=== PATIENT | female | born 2000 | race Caucasian/White ===

== ENCOUNTER 2024-05-09 16:42 | Inpatient (IN) ==
[2024-05-09 17:32] LABS: Basophils # (auto) 0.02 K/uL (0.00-0.20); Basophils % (auto) 0.2 %; Eosinophils # (auto) 0.03 K/uL (0.00-0.50); Eosinophils % (auto) 0.3 %; Hematocrit (blood only) 33.3 % (37.0-47.0); Hemoglobin 10.9 g/dl (12.0-16.0); Immature Granulocytes # (auto) 0.04 K/uL (0.01-0.20); Immature Granulocytes % (auto) 0.5 %; Lymphocytes # (auto) 1.03 K/uL (1.20-3.40); Lymphocytes % (auto) 11.7 %; Mean Corpuscular Hemoglobin 28.5 pg (25.0-34.0); Mean Corpuscular Hgb Conc 32.7 g/dL (32.0-36.0); Mean Corpuscular Volume 87.2 fL (80.0-100.0); Mean Platelet Volume 10.2 fL (9.4-12.4); Monocytes # (auto) 0.46 K/uL (0.11-0.59); Monocytes % (auto) 5.2 %; Neutrophils # (auto) 7.24 K/uL (1.40-6.50); Neutrophils % (auto) 82.1 %; Platelet Count 292 K/uL (130-400); RDW Standard Deviation 40.9 fL (36.4-46.3); Red Blood Count 3.82 M/uL (4.20-5.40); White Blood Count 8.82 K/ul (4.8-10.8)
[2024-05-09 17:51] LABS: Alanine Aminotransferase 13 U/L (7-52); Albumin Globulin Ratio 1.2 (0.9-2); Albumin Level 3.5 gm/dl (3.4-5.0); Alkaline Phosphatase 152 U/L (34-104); Anion Gap 9 (3-11); Aspartate Aminotransferase 15 U/L (13-39); BUN Creatinine Ratio 16.1 (10-20); Bilirubin,Total 0.3 mg/dl (0.2-1.0); Blood Urea Nitrogen 9 mg/dl (6-23); Calcium 8.9 mg/dl (8.6-10.3); Carbon Dioxide 19 mmol/L (21-32); Chloride 107 mmol/L (98-107); Est GFR (African American) > 150.0 ml/min; Est GFR (Non-African American) 131.4 ml/min; Glucose 82 mg/dl (70-99(Fasting)); Potassium 3.6 mmol/L (3.5-5.1); Sodium 135 mmol/L (136-145); Total Protein 6.5 gm/dl (6.0-8.3)
[2024-05-09 17:56] LABS: Creatinine Urine Random 33.1 mg/dl; Protein Creatinine Ratio Urine 0.1 (0-0.2); Total Protein Urine Random 4.9 mg/dl (0-11.9)
[2024-05-09] MEDS ORDERED: OXYTOCIN 30 UNITS/NSS 30 UNITS/500 ML BAG IV PRN (20:09)
[2024-05-09] MEDS ORDERED: LIDOCAINE 1% LOCAL 20 ML VIAL INFIL PRN (20:09)
--- NOTE | 2024-05-09 20:14 | History & Physical Report ---
Date of Service May 09, 2024 Assessment & Plan (1) Gestational hypertension: (2) with 39 completed weeks gestation: Plan Patient monitored over 4 hours and continues to have mildly elevated blood pressures at times of 140s/90s. Labs are all wnl. 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 Patient fulfills criteria for ghtn and as she is 39 weeks, induction of labor recommended. cx is not favorable. Failed attempt at whalen bulb. So will start with vaginal cytotec. Place whalen and add pit when able. History of Present Illness Chief Complaint: elevated blood pressure Primary Care Provider: NO PCP Patient is a 23yowf with iup at 39 0/7 weeks who presents to labor and delivery from the office with elevated blood pressures of 140s/90s. She notes increased swelling and an 8# weight gain noted. She denies shamra, ruq pain, n/v. Notes baby very active and no labor sx. and Delivery Plans BMI 35-39 At Beginning Of *Growth US at 32wks *Weekly NSTs at 36wks Velamentous Cord Insertion *Growth US Q4wks @28wks *Weekly NSTs @36wks *at 28 & 32 week scan pci looked more marginal than velamentous--continue to follow protocol. OB Labs: Blood Type A Positive 11/08/23 Antibody Screen NEGATIVE 11/08/23 Hemoglobin 10.9 g/dl (12.0-16.0) L 02/20/24 Hematocrit 32.0 % (37.0-47.0) L 02/20/24 Mean Corpuscular Volume 87.6 fL (80.0-100.0) 11/08/23 Platelet Count 298 K/uL (130-400) 11/08/23 Rubella IgG Antibody Immune (Immune) 11/08/23 Rapid Plasma Reagin Nonreactive (Nonreactive) 11/08/23 Hepatitis B Surface Antigen. NON-REACTIVE (NON-REACTIVE) 11/08/23 Hepatitis C Antibody (EIA) NON-REACTIVE (NON-REACTIVE) 11/08/23 HIV (1&2) Ag and Ab Confirmation NON-REACTIVE (NON-REACTIVE) 11/08/23 Glucose 1 Hour 50 gm Load 146 mg/dl (70-130) H 02/20/24 OB Optional Labs: Chlamydia trachomatis RNA Not Detected (NotDetected) 11/08/23 Neisseria gonorrhoeae RNA Not Detected (NotDetected) 11/08/23 Labs Reviewed: msafp declines smp GBS neg Allergies Allergy/AdvReac Type Severity Reaction Status Date / Time No Known Allergies Allergy Verified 05/09/24 15:43 Home Medications Medication Instructions Recorded Confirmed Type ferrous sulfate 325 mg (65 mg 325 mg PO DAILY 05/09/24 05/09/24 History iron) tablet (Iron (ferrous sulfate)) vits no.124-ferrous fum 1 tab PO DAILY 05/09/24 05/09/24 History 27 mg iron-folic acid 800 mcg tablet ( Vitamin) Patient History Medical History Varicella vaccine Asthma Family History Mother Breast cancer Denies family history of Ovarian cancer Prostate cancer Myocardial infarction Colorectal cancer Social History Smoking Status: Former smoker Tobacco Type: E-cigarettes / Vaping Second Hand Exposure: No; Do You Dip or Chew Tobacco: No; Hx Alcohol Use: No Hx Substance Use: No Preferred Language: Italian Communication Ability: Effective 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 current occupational status: employed current occupation: [employer] Other Information That Helps Us Care for You: No Feels Safe at Home: Yes Safety Concerns: Feels Safe At This Time Assistive Devices: None OB History g1--present SYSTEM DEVELOPMENT ENGINEER History noncontributory Physical Exam Constitutional: WD/WN, vitals as above Cardiovascular: Extremities: + edema (+2 to knee); no calf tenderness Gastrointestinal (Abdomen): soft, gravid, nt Psychiatric: A+Ox3, euthymic affect Genitourinary: cx--c/50/-2/post/firm toco--intermittent efm--140s with mod variability, accels to 180s, no decels attempted to place whalen bulb x 3 and unable to pass through internal os. Results & Data Vital Signs (Past 12 Hours) Vital Signs Temp Pulse Resp BP 05/09/24 19:24 81 05/09/24 19:24 147/82 H 05/09/24 19:06 18 05/09/24 19:06 36.6 C 18 05/09/24 18:54 90 05/09/24 18:54 130/78 05/09/24 18:22 80 05/09/24 18:22 138/86 05/09/24 18:13 93 H 05/09/24 18:13 139/85 05/09/24 18:02 83 05/09/24 18:02 142/86 H 05/09/24 17:52 91 H 139/87 05/09/24 17:42 86 138/83 05/09/24 17:32 91 H 135/92 05/09/24 17:28 37.0 C 18 05/09/24 17:22 113 H 130/87 05/09/24 17:14 86 140/88 05/09/24 17:02 88 133/90 Coding Level of Care Code None Diagnoses Gestational hypertension, third trimester O13.3 Trimester: third trimester with 39 completed weeks gestation Z3A.39 (1) Gestational hypertension Trimester: third trimester Qualified Code(s): O13.3 - Gestational [- induced] hypertension without significant proteinuria, third trimester
[2024-05-09] MEDS: miSOPROStoL 25 MCG TAB PV ONE (22:15)
[2024-05-10] MEDS: LACTATED RINGER'S 1,000 ML IV PRN (06:24)
--- NOTE | 2024-05-10 06:25 | Labor Progress Brief Note ---
Date of Service May 10, 2024 Subjective Patient got one cytotec and contracted too frequently for another. Now allowing me to attempt whalen bulb placement again. Assessment & Plan (1) Gestational hypertension: Trimester: third trimester Qualified Code(s): O13.3 - Gestational [-induced] hypertension without significant proteinuria, third trimester (2) with 39 completed weeks gestation: Plan successful whalen bulb placement. fetus category one. start pitocin. Admission and Anticipated Discharge Date Admission Date: May 09, 2024 Physical Exam Physical Exam: cx--barely a fingertip/50/-2 toco--3-4 om 10 minutes efm--140s with mod variability, accels to 170s, no decels speculum placed, cx visualized and whalen placed through, filled wiht 30cc of st [place] water. Results & Data Vital Signs (Past 12 Hours) Vital Signs Temp Pulse Resp BP 05/10/24 05:51 73 122/77 05/10/24 04:48 86 127/81 05/10/24 04:46 20 05/10/24 04:46 20 05/10/24 04:25 18 05/10/24 04:25 37.0 C 05/10/24 03:37 96 H 143/94 H 05/10/24 02:35 86 139/85 05/10/24 00:42 81 133/85 05/09/24 23:21 77 05/09/24 23:21 132/72 05/09/24 23:16 37.1 C 05/09/24 23:15 16 05/09/24 23:15 16 05/09/24 22:50 77 05/09/24 22:50 132/79 05/09/24 22:22 71 05/09/24 22:22 132/74 05/09/24 21:57 74 05/09/24 21:57 145/80 H 05/09/24 21:50 82 05/09/24 21:50 153/92 H 05/09/24 21:20 90 05/09/24 21:20 134/87 05/09/24 20:50 79 05/09/24 20:50 133/82 05/09/24 20:20 86 05/09/24 20:20 139/93 05/09/24 19:24 81 05/09/24 19:24 147/82 H 05/09/24 19:06 18 05/09/24 19:06 36.6 C 18 05/09/24 18:54 90 05/09/24 18:54 130/78 Coding Level of Care Code None Diagnoses Gestational hypertension, third trimester O13.3 Trimester: third trimester with 39 completed weeks gestation Z3A.39
[2024-05-10] MEDS: OXYTOCIN 30 UNITS/NSS 30 UNITS/500 ML BAG IV PRN (07:00)
--- NOTE | 2024-05-10 15:37 | Anesthesiology Consultation ---
Date of Service May 10, 2024 Assessment & Plan Chart Review Chart Review: Acceptable Risk for Surgery and Patient NOT seen in Pre Admission Testing Consults Requested none ASA ASA3 Proposed Anesthesia Anesthesia Type: Labor Epidural and CSE History Height/Weight Height: 5 ft 5 in Weight: 122.47 kg Allergies Allergy/AdvReac Type Severity Reaction Status Date / Time No Known Allergies Allergy Verified 05/09/24 15:43 Medications Home Medications Medication Instructions Recorded Confirmed Last Taken ferrous sulfate 325 mg (65 mg 325 mg PO DAILY 05/09/24 05/09/24 05/08/24 iron) tablet (Iron (ferrous sulfate)) vits no.124-ferrous fum 1 tab PO DAILY 05/09/24 05/09/24 05/02/24 27 mg iron-folic acid 800 mcg tablet ( Vitamin) Active Medications Generic Name Dose Route Start Last Admin Trade Name Freq PRN Reason Stop Dose Admin Lactated Ringer's 1,000 mls @ 125 mls/hr 05/09/24 20:09 05/10/24 13:44 Lr IV 05/11/24 20:08 125 mls/hr .Q8H PRN Administration L&D Protocol Protocol Oxytocin 30 units in 500 mls @ 9 mls/hr 05/10/24 06:25 05/10/24 14:57 Pitocin 30 Units/Nss IV 05/12/24 06:24 0.54 units/hr .Q24H PRN 9 mls/hr Labor Induction/Augmentation Titration Protocol 0.54 UNITS/HR Past Medical History Medical History Varicella vaccine Asthma anemia Morbid obesity Gestational HTN Exercise / Class Metabolic Activity II 4-5 Yardwork/Stairs/Walk up hill Past Family History Family History Mother Breast cancer Denies family history of Ovarian cancer Prostate cancer Myocardial infarction Colorectal cancer Past Anesthesia History No Hx of Anesthesia Complications and No Family Hx of Anesthesia Complications History of PONV No Hx of PONV and No Hx of Motion Sickness Social History Smoking Status: Former smoker Do You Dip or Chew Tobacco: No Hx Alcohol Use: No Hx Substance Use: No Physical Exam Vital Signs Last Vital Signs Temp 37.0 C 05/10/24 15:19 Pulse 100 H 05/10/24 14:49 Resp 20 08/10/24 15:19 BP 136/82 05/10/24 14:49 Testing Laboratory Results 05/09/24 17:03 05/09/24 17:03 Blood Type A Positive 05/09/24 17:04 Antibody Screen NEGATIVE 05/09/24 17:04
[2024-05-10] MEDS: LIDOCAINE 2%/EPINEPHRINE 1:200,000 20 ML PF ONE (16:18)
[2024-05-10] MEDS: BUPIVACAINE 0.25% PF 30 ML VIAL ONE (16:18)
[2024-05-10] MEDS: fentaNYL citrate PF 100 MCG/2 ML VIAL ONE (16:18)
[2024-05-10] MEDS: fentANYL 2 MCG/ML BUPIVacaine 0.125%-NSS 100ML BAG ONE (16:18)
[2024-05-10] MEDS ORDERED: LIDOCAINE 2% MPF LOCAL 5 ML VIAL EPI PRN (16:29)
[2024-05-10] MEDS ORDERED: ONDANSETRON INJ 2 MG/ML 2 ML VIAL IV PRN (16:29)
[2024-05-10] MEDS ORDERED: SODIUM CHLORIDE 0.9% PF INJ 10 ML VIAL EPI PRN (16:29)
[2024-05-10] MEDS ORDERED: BUPIVACAINE 0.25% PF 30 ML VIAL EPI PRN (16:29)
[2024-05-10] MEDS ORDERED: ROPIVACAINE 0.5% PF 5 MG/ML 20 ML VIAL EPI PRN (16:29)
[2024-05-10] MEDS ORDERED: NALOXONE HCL 1 MG in SODIUM CHLORIDE 0.9% 1,000 ML IV PRN (16:29)
[2024-05-10] MEDS ORDERED: PROMETHAZINE 6.25 MG/50.25 ML BAG IV PRN (16:29)
[2024-05-10] MEDS ORDERED: fentaNYL citrate PF 100 MCG/2 ML VIAL EPI PRN (16:29)
[2024-05-10] MEDS ORDERED: NALBUPHINE HCL 5 MG in SYRINGE 0 ML IV PRN (16:29)
[2024-05-10] MEDS ORDERED: NALOXONE HCL 0.4 MG/1 ML VIAL/CARP IV PRN (16:29)
[2024-05-10] MEDS ORDERED: ePHEDrine sulfate 50 MG/ML AMP IV PRN (16:29)
[2024-05-10] MEDS ORDERED: fentANYL 2 MCG/ML BUPIVacaine 0.125%-NSS 100ML BAG EPI PRN (16:29)
--- NOTE | 2024-05-10 16:59 | Labor Progress Brief Note ---
Date of Service May 10, 2024 Subjective Bello bulb came out at 11a. Now comfortable with epidural. FHT Cat 1 [place] Q 2-4 SROM clear fluid. Cervix 5/70/-2 Continue IOL. Assessment & Plan Admission and Anticipated Discharge Date Admission Date: May 09, 2024 Results & Data Vital Signs (Past 12 Hours) Vital Signs Temp Pulse Resp BP Pulse Ox 05/10/24 16:56 75 124/68 05/10/24 16:55 94 H 99 05/10/24 16:52 113 H 87 L 05/10/24 16:50 99 H 90 05/10/24 16:46 94 H 126/78 83 L 05/10/24 16:45 100 H 97 05/10/24 16:42 93 H 130/82 05/10/24 16:41 99 H 88 L 05/10/24 16:40 99 H 92 05/10/24 16:36 88 86 L 05/10/24 16:35 89 127/81 95 05/10/24 16:30 95 H 99 05/10/24 16:29 89 128/76 05/10/24 16:27 90 126/74 05/10/24 16:25 95 05/10/24 16:25 100 H 05/10/24 16:25 78 128/67 05/10/24 16:24 88 126/71 05/10/24 16:23 98 H 92 05/10/24 16:20 100 05/10/24 16:20 108 H 05/10/24 16:20 78 129/82 05/10/24 16:15 100 05/10/24 16:15 96 H 05/10/24 16:15 108 H 93 05/10/24 16:10 98 05/10/24 16:10 95 H 05/10/24 16:10 114 H 139/89 05/10/24 16:05 120 H 99 05/10/24 16:04 116 H 135/92 05/10/24 16:01 107 H 141/93 H 05/10/24 16:00 116 H 99 05/10/24 15:58 107 H 150/99 H 05/10/24 15:55 107 H 137/99 100 05/10/24 15:52 102 H 139/96 05/10/24 15:50 100 05/10/24 15:50 114 H 05/10/24 15:50 118 H 92 05/10/24 15:48 103 H 140/100 05/10/24 15:45 105 H 100 05/10/24 15:44 89 92 05/10/24 15:40 84 99 05/10/24 15:35 111 H 99 05/10/24 15:19 20 05/10/24 15:19 37.0 C 20 05/10/24 14:49 100 H 136/82 05/10/24 13:49 76 142/85 H 05/10/24 12:49 78 135/85 05/10/24 11:48 76 123/77 05/10/24 11:35 37.0 C 05/10/24 10:50 78 121/85 05/10/24 09:49 100 H 121/74 05/10/24 08:53 108 H 127/91 05/10/24 07:07 37.1 C 16 05/10/24 07:07 69 131/76 05/10/24 06:50 70 131/90 05/10/24 05:51 73 122/77 Coding Level of Care Code None
[2024-05-10] MEDS: diphenhydrAMINE 50 MG/ML VIAL IV PRN (17:06)
[2024-05-10] MEDS: fentaNYL citrate PF 100 MCG/2 ML VIAL EPI STA (17:23)
[2024-05-10] MEDS: ePHEDrine sulfate 50 MG/ML AMP ONE (17:23)
[2024-05-10] MEDS: BUPIVACAINE 0.25% PF 30 ML VIAL EPI STA (17:23)
[2024-05-10] MEDS: LIDOCAINE 2%/EPINEPHRINE 1:200,000 20 ML PF EPI STA (17:23)
[2024-05-10] MEDS: SODIUM CHLORIDE 0.9% PF INJ 10 ML VIAL ONE (17:23)
[2024-05-10] MEDS: SODIUM CHLORIDE 0.9% PF INJ 10 ML VIAL EPI STA (17:24)
--- NOTE | 2024-05-10 20:57 | Delivery Summary ---
Vaginal Delivery Summary Date of Service May 10, 2024 Vaginal Delivery Summary and 1st Degree LAC Vaginal Delivery Summary: Pre-delivery diagnoses: 23yo @ 39 1/7, gestational hypertension, velamentous insertion of cord, obesity Post-delivery diagnoses: same Procedure: spontaneous vaginal delivery Surgeon: Kanika Aguirre DO Complications: none Findings: Viable female . Apgars: 8/9. Weight pending, please see nursery records. Estimated QBL: 300ml Description of delivery: The patient progressed to complete with epidural anesthesia. She then began to push. She spontaneously vaginally delivered a viable from the cephalic presentation. The head delivered in LINUS position. The anterior shoulder delivered, followed by the posterior shoulder, followed by the body. The baby was placed on mother's abdomen and a spontaneous cry was heard. Delayed cord clamping was employed, and the cord was doubly clamped and cut. Cord blood was obtained. The placenta was delivered spontaneously intact with a 3-vessel cord. The uterus and vagina were swept of clots and debris. IV pitocin was given. The uterus became firm. The cervix, vagina, and perineum were inspected and a first degree perineal laceration noted and repaired with 3-0 Vicryl. Excellent hemostasis was observed. The mother and baby are recovering in stable and good condition in the room. Sponge, needle and instrument counts were correct x 2. Kanika Aguirre DO [facility] Vaginal Delivery Charge Vaginal Delivery Codes: 97566 global code for the antepartum, delivery, and post- Delivery Type Details: and 1st Degree LAC
[2024-05-10] MEDS ORDERED: OXYTOCIN 30 UNITS/NSS 30 UNITS/500 ML BAG IV PRN (21:08)
[2024-05-10] MEDS ORDERED: HYDROCORTISONE ACETATE 25 MG SUPP PR PRN (21:08)
[2024-05-10] MEDS ORDERED: oxyCODONE/ACETAMINOPHEN 5mg/325mg TAB PO PRN (21:08)
[2024-05-10] MEDS ORDERED: ACETAMINOPHEN 325 MG TAB PO PRN (21:08)
--- NOTE | 2024-05-10 21:20 | Anesthesia Procedure Note ---
Date of Service May 10, 2024 Anesthesia Post Epidural Note Vital Signs Vital Signs: Temp Pulse Resp BP Pulse Ox 36.8 C 110 H 16 132/82 98 05/10/24 20:41 05/10/24 20:41 05/10/24 20:56 05/10/24 20:41 05/10/24 20:16 Pain Intensity Abdomen: Pain Intensity: 6 Notes Mental Status: alert / awake / arousable Nausea / Vomiting: adequately controlled Pain: adequately controlled Airway Patency, RR, SpO2: stable & adequate BP & HR: stable & adequate Hydration State: stable & adequate Neuraxial Anesthesia: was administered and sensory block is resolving Anesthetic Complications: no major complications apparent and Pt Satisfied with anesthetic care Epidural: Removed without complications and With tip intact
[2024-05-10] MEDS: IBUPROFEN 600 MG TAB PO PRN (22:26)
[2024-05-10] MEDS: BENZOCAINE 20% SPRY 85 APPLN/85 GM CAN EXT PRN (22:27)
[2024-05-10] MEDS: DOCUSATE SODIUM 100 MG CAP PO SCH (22:28)
[2024-05-10] MEDS: DIPHTHER/TETAN/PERTUS Vaccine (Tdap, Adol/Adult) 0.5mL IM ONE (22:28)
[2024-05-11] MEDS ORDERED: bisacodyL 10 MG SUPP PR PRN
[2024-05-11 07:51] LABS: Hematocrit (blood only) 32.1 % (37.0-47.0); Hemoglobin 10.3 g/dl (12.0-16.0)
--- NOTE | 2024-05-11 08:56 | Obstetrical Progress Note ---
Date of Service May 11, 2024 Assessment & Plan (1) with 39 completed weeks gestation: PPD#1 doing well. Ambulating, eating/drinking, ok. Anticipate DC home tomorrow. Continue routine care. (2) Gestational hypertension: Trimester: third trimester Qualified Code(s): O13.3 - Gestational [-induced] hypertension without significant proteinuria, third trimester Subjective Ambulation: ambulating normally Voiding: no voiding problems Diet Tolerance:: regular diet Lochia:: Moderate Review of Systems All systems reviewed & are unremarkable except as noted in HPI & below Physical Exam Constitutional WD/WN, vitals as above no acute distress Respiratory normal respiratory effort Cardiovascular Rate/Rhythm: regular rate and regular rhythm Gastrointestinal (Abdomen) Inspection/Auscultation: abdomen normal to inspection; abdomen not distended Percussion/Palpation: abdomen soft Genitourinary OB Exam Abdomen: + fundal height Fundus: + firm; not tender Results & Data Vital Signs (Past 12 Hours) Vital Signs Temp Pulse Pulse Resp BP BP Pulse Ox 05/11/24 03:30 36.6 C 104 H 20 127/85 96 05/10/24 23:15 36.8 C 95 H 18 127/85 97 05/10/24 22:54 113 H 126/81 05/10/24 22:50 36.9 C 18 05/10/24 22:20 16 05/10/24 22:10 98 H 132/87 05/10/24 21:50 37.0 C 16 05/10/24 21:50 85 146/74 H 05/10/24 21:34 18 05/10/24 21:34 99 H 141/88 H 05/10/24 21:19 18 05/10/24 21:19 86 129/78 O2 Del Method 05/11/24 03:30 Room Air 05/10/24 23:15 Room Air 05/10/24 22:54 05/10/24 22:50 05/10/24 22:20 05/10/24 22:10 05/10/24 21:50 05/10/24 21:50 05/10/24 21:34 05/10/24 21:34 05/10/24 21:19 05/10/24 21:19
[2024-05-11] MEDS: PRENATAL VITAMIN 1 TAB PO SCH (09:00)
[2024-05-11] MEDS: bisacodyL 5 MG TABEC PO SCH (20:07)
--- NOTE | 2024-05-12 06:00 | Obstetrical Progress Note ---
Date of Service May 12, 2024 Assessment & Plan (1) with 39 completed weeks gestation: Plan: (1) with 39 completed weeks gestation: PPD#2 doing well. Ambulating, eating/drinking, ok. Anticipate DC home today. Continue routine care. (2) Gestational hypertension: Plan: (2) Gestational hypertension: BP range normal in last 24 hours Admission and Anticipated Discharge Date Admission Date: May 09, 2024 Supervising Physician Co-Signing Physician Notes Resident Physician Supervision Note: I interviewed and examined the patient. Discussed with Dr. Forbes and agree with findings and plan as documented in the note. Any exceptions or clarifications are listed here: PPD#2 doing well, DC home today. Instructions reviewed. Documented By: Kanika Aguirre, Subjective Bello bulb came out at 11a. Now comfortable with epidural. FHT Cat 1 [place] Q 2-4 SROM clear fluid. Cervix 5/70/-2 Continue IOL. Physical Exam Respiratory: normal respiratory effort, lungs clear to auscultation Cardiovascular: RRR, no murmur, no edema Genitourinary: Uterus below umbilicus, Firm, non tender, well involuted Results & Data Vital Signs (Past 12 Hours) Vital Signs Temp Pulse Resp BP Pulse Ox O2 Del Method 05/12/24 00:15 37.0 C 100 H 18 124/82 97 Room Air 05/11/24 20:05 37.0 C 102 H 18 133/84 97 Room Air (2) Gestational hypertension Trimester: third trimester Qualified Code(s): O13.3 - Gestational [- induced] hypertension without significant proteinuria, third trimester
--- NOTE | 2024-05-12 06:54 | Obstetrical Progress Note ---
Date of Service May 12, 2024 Assessment & Plan Admission and Anticipated Discharge Date Admission Date: May 09, 2024 Results & Data Vital Signs (Past 12 Hours) Vital Signs Temp Pulse Resp BP Pulse Ox O2 Del Method 05/12/24 00:15 37.0 C 100 H 18 124/82 97 Room Air 05/11/24 20:05 37.0 C 102 H 18 133/84 97 Room Air
[2024-05-12 07:17] VITALS: BP 129/84; PULSE 98; RESP 16; TEMP 98.4; O2SAT 98
== END 2024-05-12 13:20 | disposition home or self-care (01) | DRG 807 ==
LOC: OPB 16:42 → 4S1 16:45 → 4E2 05-10 23:29